=== PATIENT | female | born 1980 | race Caucasian/White ===

== ENCOUNTER 2021-05-14 10:59 | Emergency (ER) | payer OTHER, SELFPAY ==
--- NOTE | ~2021-05-14 | CT_ITS ---
EXAMINATION: CT ABDOMEN AND PELVIS WITHOUT CONTRAST CLINICAL INFORMATION: Right lower quadrant tenderness. Rule out appendicitis COMPARISON: Renal ultrasound 08/05/2014. TECHNIQUE: Multidetector volumetric imaging was performed from the superior aspect of the liver through the pubic symphysis. Sagittal and coronal reformatted images were obtained on the technologist's workstation. This CT examination was performed using dose optimization techniques as appropriate, variously including the following: *Automated exposure control *Adjustment of mA and/or kV according to patient size (this includes techniques or standardized protocols for targeted exams where dose is matched to indication/reason for exam; i.e. extremities or head) *Use of iterative reconstruction technique DLP: 454 mGy-cm FINDINGS: LUNG BASES: The visualized lung bases are unremarkable. LIVER, GALLBLADDER, AND BILIARY TREE: The liver is normal in size, shape, and attenuation. No focal hepatic lesion or biliary ductal dilatation is present. The gallbladder is unremarkable with no evidence of radiopaque gallstones, gallbladder wall thickening, or obvious pericholecystic inflammatory changes. PANCREAS: Unremarkable. SPLEEN: Unremarkable. ADRENAL GLANDS: Unremarkable. KIDNEYS AND URETERS: Right kidney: Normal size. A tiny nonobstructive calyceal calculus is demonstrated in the lower pole measuring 0.1 cm. No hydronephrosis or hydroureter. No visualized urolithiasis. Left kidney: Normal size. Tiny nonobstructive 0.1 cm upper pole calcification and 0.3 cm lower pole calcification. No hydronephrosis or hydroureter. No visualized urolithiasis. BLADDER: The bladder is decompressed limiting evaluation. GASTROINTESTINAL TRACT: The stomach and small and large bowel are nondistended. No evidence of obstruction. Small stool burden in the colon. No diverticulosis/diverticulitis is seen. The appendix is normal. ABDOMINAL WALL: No significant hernia is appreciated. LYMPH NODES: Normal. VASCULAR: Unremarkable. PELVIC VISCERA: The uterus is anteverted. A small right ovarian cyst is seen. No adnexal mass appreciated. No free fluid. OSSEOUS STRUCTURES: Unremarkable. CT/CT abdomen pelvis wo con IMPRESSION: Tiny nonobstructive renal calculi. Small stool burden in the colon. No evidence of bowel obstruction. Normal appendix. No cause for pain identified.
[2021-05-14 11:13] VITALS: BP 146/57; PULSE 56; RESP 17; TEMP 35.6; O2SAT 100; BMI 30.2
[2021-05-14 11:43] LABS: Glucose Urine UA NEG (NEG); Leukocyte Esterase Urine NEG (NEG); Nitrite Urine NEG (NEG); Specific Gravity - Urine 1.015 (1.005-1.025); Urine Blood NEG (NEG); Urine Ketones NEG (NEG); Urine Protein NEG (NEG-TRACE)
[2021-05-14 11:45] LABS: Appearance Urine CLEAR; Color Urine YELLOW
[2021-05-14 11:46] LABS: UPreg QC Valid YES; Urine Pregnancy NEGATIVE (NEGATIVE)
[2021-05-14 11:56] LABS: Bacteria Urine 1+ /LPF; RBC Urine 0 /HPF (0); Squamous Epithelial Cell Urine 2+ /LPF; WBC Urine 0 /HPF (0-4)
[2021-05-14] MEDS: 0.9 % Sodium Chloride 1,000 ML 999 ML IVCONT (12:26)
[2021-05-14 12:32] LABS: MANUAL DIFF FLAG NO
[2021-05-14 12:33] LABS: Basophils Percent Auto 0.5 % (0-2); Eosinophils Absolute Auto 0.1 X10*3/uL (0.0-0.4); Eosinophils Percent Auto 1.7 % (0-4); Hematocrit 36.5 % (37-47); Hemoglobin 11.6 g/dl (12.0-16.0); Imm Gran Abs Auto 0.01 X10*3/uL (0.00-0.03); Imm Gran Pct Auto 0.2 % (0.0-0.4); Lymphocytes Percent Auto 31.3 % (20-40); Mean Corpuscular HGB Conc 31.8 g/dl (31.0-35.0); Mean Corpuscular Hemoglobin 26.3 pg (27.0-33.0); Mean Corpuscular Volume 82.8 fL (80-98); Mean Platelet Volume 13.4 fL (9.4-12.3); Monocytes Absolute Auto 0.4 X10*3/uL (0.1-1.2); Monocytes Percent Auto 6.6 % (2-11); Neutrophils Absolute Auto 3.8 X10*3/uL (2.0-8.3); Neutrophils Percent Auto 59.7 % (45-73); Platelet Count 182 X10*3/uL (160-400); Red Blood Count 4.41 X10*6/uL (4.20-5.50); Red Cell Distribution Width 15.9 % (11.0-16.0); White Blood Count 6.4 X10*3/uL (4.8-10.8)
[2021-05-14 12:59] LABS: Alanine Aminotransferase 11 U/L (0-31); Albumin Level 4.5 g/dL (3.5-5.0); Alkaline Phosphatase 51 U/L (39-117); Anion Gap 12 (12-20); Aspartate Amino Transferase 14 U/L (5-31); Bilirubin Direct 0.2 mg/dL (0.0-0.5); Bilirubin Total 0.5 mg/dL (0.0-1.0); Blood Urea Nitrogen 10 mg/dL (9-16); Calcium 9.6 mg/dL (8.4-10.2); Carbon Dioxide 26 mmol/L (22-29); Chloride 106 mmol/L (96-108); Creatinine Clr Calc Pharmacy 80.4; Estimated Glomerular Filt Rate > 60; Glucose Random 90 mg/dL (60-115); Lipase 34 U/L (8-78); Potassium 3.9 mmol/L (3.3-5.1); Sodium 140 mmol/L (135-145); Total Protein 7.2 g/dL (6.5-8.0)
[2021-05-14 13:20] VITALS: BP 126/75; PULSE 55; RESP 16; O2SAT 98
[2021-05-14] MEDS: Ketorolac Tromethamine 15 MG/ML VIAL 30 MG IVPUSH (14:00)
--- NOTE | 2021-05-14 14:31 | ED_ITS ---
HPI - Abdominal Pain General Chief Complaint: Abdominal Pain Stated Complaint: ABD PAIN Time Seen by Provider: 05/14/21 12:10 History of Present Illness HPI narrative: Patient complains of intermittent crampy abdominal pain for several days worst around the umbilical area and lower to mid abdomen, she has not lost her appetite although eating food does make it mildly worse, she has no nausea vomiting or diarrhea she has no dysuria she has no fever no chills no rashes no other illness Related Data Previous Rx's Medication Instructions Recorded famotidine [Pepcid] 20 mg PO BID #14 tab 05/14/21 Allergies Allergy/AdvReac Type Severity Reaction Status Date / Time Sulfa (Sulfonamide Allergy Unknown hives and Verified 12/12/16 00:00 Antibiotics) swelling Review of Systems Review of Systems Positive for abdominal pain Negatives are no fever no chills no dizziness or weakness no fainting no feeling faint no headache no neck pain no back pain no chest pain no no cough no nausea no vomiting no diarrhea no dysuria no frequency no incontinence no blood in the urine no blood in the stool no joint pains no skin rashes Yes all other systems are reviewed and are negative Physical Exam Vital Signs: Vital Signs: Last Vital Signs Temp 96.0 F L 05/14/21 11:13 Pulse 55 05/14/21 13:20 Resp 16 05/14/21 13:20 BP 126/75 05/14/21 13:20 Pulse Ox 98 05/14/21 13:20 Body Mass Index 30.2 General appearance is no acute distress The eyes are anicteric with no pallor The pharynx is clear with no redness swelling or exudate and mucous membranes are moist Neck is supple The chest is clear to auscultation bilateral Heart no murmur The abdomen had mild periumbilical and right low abdomen tenderness including at McBurney's point with no rebound or guarding, no other tenderness The back there is no CVA tenderness, full range of motion Extremities full range of motion x4 The pelvic there was a thin whitish discharge, no cervical motion tenderness no adnexal enlargement or tenderness no mass palpated Skin no rashes Neuro no gross deficit identified Course Course Course Narrative: Patient was evaluated with CT scan and labs for possible appendicitis CT scan did not reveal any explanation for the pain and the appendix was seen is normal , no significant ovarian pathology was identified Repeat exam again shows moved very mild tenderness periumbilical and right lower abdomen without rebound or guarding, patient's pain was improved with Toradol and she is well-appearing and is discharged with a diagnosis of abdominal pain unknown etiology MDM - Abdominal Pain Lab Data Attestation: I reviewed the patient's lab results. Result diagrams: 05/14/21 12:23 05/14/21 12:23 Labs: Lab Results 05/14/21 05/14/21 05/14/21 Range/Units 11:29 11:29 12:23 WBC 6.4 (4.8-10.8) X10*3/uL RBC 4.41 (4.20-5.50) X10*6/uL Hgb 11.6 L (12.0-16.0) g/dl Hct 36.5 L (37-47) % MCV 82.8 (80-98) fL MCH 26.3 L (27.0-33.0) pg MCHC 31.8 (31.0-35.0) g/dl RDW 15.9 (11.0-16.0) % Plt Count 182 (160-400) X10*3/uL MPV 13.4 H (9.4-12.3) fL Immature Gran % (Auto) 0.2 (0.0-0.4) % Neut % (Auto) 59.7 (45-73) % Lymph % (Auto) 31.3 (20-40) % [place] % (Auto) 6.6 (2-11) % Eos % (Auto) 1.7 (0-4) % Baso % (Auto) 0.5 (0-2) % Lymph # (Auto) 2.0 (1.2-4.9) X10*3/uL [place] # (Auto) 0.4 (0.1-1.2) X10*3/uL Eos # (Auto) 0.1 (0.0-0.4) X10*3/uL Baso # (Auto) 0.0 (0.0-0.2) X10*3/uL Abs Immat Gran (auto) 0.01 (0.00-0.03) X10*3/uL Absolute Neuts (auto) 3.8 (2.0-8.3) X10*3/uL Absolute Nucleated RBC 0.000 (0.0-0.012) X10*3/uL Nucleated RBC % (auto) 0.0 (0.0-0.2) /100WBC Sodium (135-145) mmol/L Potassium (3.3-5.1) mmol/L Chloride (96-108) mmol/L Carbon Dioxide (22-29) mmol/L Anion Gap (12-20) BUN (9-16) mg/dL Creatinine (0.5-1.4) mg/dL Estim Creat Clear Calc Estimated GFR Random Glucose (60-115) mg/dL Calcium (8.4-10.2) mg/dL Total Bilirubin (0.0-1.0) mg/dL Direct Bilirubin (0.0-0.5) mg/dL AST (5-31) U/L ALT (0-31) U/L Alkaline Phosphatase (39-117) U/L Total Protein (6.5-8.0) g/dL Albumin (3.5-5.0) g/dL Lipase (8-78) U/L Urine Color YELLOW Urine Appearance CLEAR Urine pH 7.0 (5.0-8.0) Ur Specific [place] 1.015 (1.005-1.025) Urine Protein NEG (NEG-TRACE) MG/DL Urine Glucose (UA) NEG (NEG) MG/DL Urine Ketones NEG (NEG) MG/DL Urine Blood NEG (NEG) Urine Nitrite NEG (NEG) Ur Leukocyte Esterase NEG (NEG) Urine RBC 0 (0) /HPF Urine WBC 0 (0-4) /HPF Ur Squamous Epith Cells 2+ /LPF Urine Bacteria 1+ /LPF Urine Test NEGATIVE (NEGATIVE) 05/14/21 Range/Units 12:23 WBC (4.8-10.8) X10*3/uL RBC (4.20-5.50) X10*6/uL Hgb (12.0-16.0) g/dl Hct (37-47) % MCV (80-98) fL MCH (27.0-33.0) pg MCHC (31.0-35.0) g/dl RDW (11.0-16.0) % Plt Count (160-400) X10*3/uL MPV (9.4-12.3) fL Immature Gran % (Auto) (0.0-0.4) % Neut % (Auto) (45-73) % Lymph % (Auto) (20-40) % [place] % (Auto) (2-11) % Eos % (Auto) (0-4) % Baso % (Auto) (0-2) % Lymph # (Auto) (1.2-4.9) X10*3/uL [place] # (Auto) (0.1-1.2) X10*3/uL Eos # (Auto) (0.0-0.4) X10*3/uL Baso # (Auto) (0.0-0.2) X10*3/uL Abs Immat Gran (auto) (0.00-0.03) X10*3/uL Absolute Neuts (auto) (2.0-8.3) X10*3/uL Absolute Nucleated RBC (0.0-0.012) X10*3/uL Nucleated RBC % (auto) (0.0-0.2) /100WBC Sodium 140 (135-145) mmol/L Potassium 3.9 (3.3-5.1) mmol/L Chloride 106 (96-108) mmol/L Carbon Dioxide 26 (22-29) mmol/L Anion Gap 12 (12-20) BUN 10 (9-16) mg/dL Creatinine 0.78 (0.5-1.4) mg/dL Estim Creat Clear Calc 80.4 Estimated GFR > 60 Random Glucose 90 (60-115) mg/dL Calcium 9.6 (8.4-10.2) mg/dL Total Bilirubin 0.5 (0.0-1.0) mg/dL Direct Bilirubin 0.2 (0.0-0.5) mg/dL AST 14 (5-31) U/L ALT 11 (0-31) U/L Alkaline Phosphatase 51 (39-117) U/L Total Protein 7.2 (6.5-8.0) g/dL Albumin 4.5 (3.5-5.0) g/dL Lipase 34 (8-78) U/L Urine Color Urine Appearance Urine pH (5.0-8.0) Ur Specific [place] (1.005-1.025) Urine Protein (NEG-TRACE) MG/DL Urine Glucose (UA) (NEG) MG/DL Urine Ketones (NEG) MG/DL Urine Blood (NEG) Urine Nitrite (NEG) Ur Leukocyte Esterase (NEG) Urine RBC (0) /HPF Urine WBC (0-4) /HPF Ur Squamous Epith Cells /LPF Urine Bacteria /LPF Urine Test (NEGATIVE) Discharge Plan Discharge Clinical Impression: Abdominal pain of unknown etiology Patient Disposition: Home, Self-Care Additional Instructions: We did not find any evidence of appendicitis or any large ovarian cyst on CT scan Our labs did not show any urinary tract infection or or any evidence of liver disease There were no significant findings, no alarming findings on our workup Follow with both primary doctor and net web application developer for further evaluation We are going to try an antacid and otherwise [id number] Tylenol or Motrin for pain relief if needed Return to the ER any time for worsening pain, vomiting, dehydration, fever, any worse condition or any concerns We will call you if any results from the culture of the vaginal discharge are positive Prescriptions: New famotidine [Pepcid] 20 mg tablet 20 mg PO BID Qty: 14 RF: 0 Stand Alone Forms: Work/School Release PMFSH Past Medical History Source: nursing notes reviewed Medical History (Updated 05/14/21 @ 14:40 by MOON Vaca) delivery delivered Hypertension Social History Social History Advance Directives: No Advance Directives Information Provided: Yes Patient : No
[2021-05-14 16:48] LABS: CT PCR NOT DETECTED (Not Detect.); NG PCR NOT DETECTED (Not Detect.)
[2021-05-15 09:10] LABS: BV Int Neg Control Negative (Negative); BV Int Pos Control Positive (Positive)
== END 2021-05-14 14:52 | disposition home or self-care (01) ==
PROVIDERS: Physician Assistant Medical; Emergency Provider Emergency Medicine; PCP Internal Medicine
DX: R10.9 Unspecified abdominal pain (principal); I10 Essential (primary) hypertension
CPT/HCPCS: 36415; 74176; 80048; 80076; 81001; 81025; 83690; 85025; 87480; 87491; 87510; 87591; 87660; 96361; 96374; 99284; J1885

== ENCOUNTER 2025-05-19 16:43 | Emergency (ER) | payer OTHER, SELFPAY ==
--- NOTE | 2025-05-19 17:39 | ED_ITS ---
HPI - General Adult General Chief complaint: Dizziness Stated complaint: rt arm tingling/pain Time Seen by Provider: 05/19/25 19:05 Source: patient Mode of arrival: ambulatory Limitations: no limitations History of Present Illness ED Provider: HPI narrative: Patient is 45 years old with a history of anxiety depression hypotension comes here for been having nausea with watery diarrhea since 11:00 today had multiple bowel movements along with that patient noticed tingling sensation of the right forearm and face no chest pain no vomiting patient took Zofran around 13:00 and felt better no head patient's feel off balance with vertiginous feeling since then also no significant abdominal pain Related Data Previous Rx's ?Medication ?Instructions ?Recorded famotidine 20 mg tablet (Pepcid) 20 mg PO BID #14 tabs 05/14/21 Allergies Allergy/AdvReac Type Severity Reaction Status Date / Time Sulfa (Sulfonamide Allergy Unknown hives and Verified 05/19/25 17:45 Antibiotics) swelling Iodinated Contrast Media Allergy Anaphylaxis Verified 05/19/25 17:45 (Contrast Dye) prochlorperazine (From Allergy Fatigued Verified 05/19/25 17:45 Compazine) Review of Systems 2 Review of Systems: Yes all other systems are reviewed and are negative [facility] Past Medical History Medical History delivery delivered Hypertension Social History Social History Advance Directives: No Advance Directives Information Provided: Yes Physical Exam ED Vital Signs: Vital Signs - 24 hr 05/19/25 17:40 05/19/25 18:06 Temperature 98.4 F Pulse Rate 80 59 Respiratory Rate 16 16 Blood Pressure 139/65 123/86 Pulse Oximetry 99 99 Oxygen Delivery Method Room Air Room Air BMI result Body Mass Index 31.2 Appearance: Alert. Oriented X3. No acute distress. Eyes: PERRLA, No Nystagmus ENT: Pharynx normal. Oral Mucosa moist Neck: Normal inspection. Neck supple. CVS: Normal heart rate and rhythm. Pulses normal. Respiratory: No respiratory distress. Equal air entry bilateral, no wheezing/rales/rhonchi Abdomen: Soft and nontender. Bowel sounds are present, no mass palpable, no CVA tenderness Skin: Skin warm and dry. Normal skin color. Normal skin turgor. Extremities: No lower extremity edema. No calf tenderness Neuro: Oriented X 3. No motor deficit. No sensory deficit.No cerebellar signs , cranial nerves II-XII intact Course Course Course Narrative: RME, this is a rapid medical exam performed by Dylan Jara please refer to primary provider for complete H&P- 45 year old female presents for evaluation of right arm tingling, dizziness, and nausea. Plan for labs, UA, EKG Medical Decision Making Medical Decision Making [facility] Narrative: Patient nonspecific symptoms , clinically with anxiety nonfocal exam patient does have vertiginous feeling but ambulating in steady gait want any medication or treatment for vertigo as it is feeling better no tinnitus no cerebellar sign Differential Diagnosis Differential Diagnoses: The differential diagnosis associated with the presentation includes Vertigo/electrolyte imbalance/anxiety/CVA/TIA Lab Data [facility] Lab Attestation statement: I reviewed the patient's lab results. 05/19/25 17:59 05/19/25 17:59 Labs: Lab Results 05/19/25 05/19/25 Range/Units 17:59 18:50 WBC 7.0 (4.8-10.8) X10*3/uL RBC 4.26 (4.20-5.50) X10*6/uL Hgb 12.7 (12.0-16.0) g/dl Hct 36.8 L (37.0-47.0) % MCV 86.4 (80.0-98.0) fL MCH 29.8 (27.0-33.0) pg MCHC 34.5 (31.0-35.0) g/dl RDW 16.6 H (11.0-16.0) % Plt Count 149 L (160-400) X10*3/uL MPV 13.6 H (9.4-12.3) fL Immature Gran % (Auto) 0.4 (0.0-0.4) % Neut % (Auto) 69.9 (45-73) % Lymph % (Auto) 21.2 (20-40) % [place] % (Auto) 6.9 (2-11) % Eos % (Auto) 0.9 (0-4) % Baso % (Auto) 0.7 (0-2) % Lymph # (Auto) 1.5 (1.2-4.9) X10*3/uL [place] # (Auto) 0.5 (0.1-1.2) X10*3/uL Eos # (Auto) 0.1 (0.0-0.4) X10*3/uL Baso # (Auto) 0.1 (0.0-0.2) X10*3/uL Abs Immat Gran (auto) 0.03 (0.00-0.03) X10*3/uL Absolute Neuts (auto) 4.9 (2.0-8.3) x10*3/uL Absolute Nucleated RBC 0.000 (0.0-0.012) X10*3/uL Nucleated RBC % (auto) 0.0 (0.0-0.2) /100WBC Sodium 141 (135-145) mmol/L Potassium 3.6 (3.3-5.1) mmol/L Chloride 105 (96-108) mmol/L Carbon Dioxide 26 (22-29) mmol/L Anion Gap 14 (12-20) BUN 15 (9-16) mg/dL Creatinine 0.87 (0.5-1.4) mg/dL Estim Creat Clear Calc 70.2 Estimated GFR > 60 Random Glucose 102 (60-115) mg/dL Calcium 9.5 (8.4-10.2) mg/dL Magnesium 2.0 (1.6-2.6) mg/dL Total Bilirubin 0.3 (0.0-1.0) mg/dL AST 28 (5-31) U/L ALT 34 H (0-31) U/L Alkaline Phosphatase 46 (39-117) U/L Troponin I High Sens < 2.7 (<3.5-17.0) ng/L Total Protein 7.1 (6.5-8.0) g/dL Albumin 4.8 (3.5-5.0) g/dL Lipase 37 (8-78) U/L Beta HCG, Quant < 2 mIU/mL Urine Color Yellow Urine Appearance Clear Urine pH 7.0 (5.0-9.0) Ur Specific [place] 1.010 (1.005-1.025) Urine Protein Negative (Neg-Trace) mg/dL Urine Glucose (UA) Negative (Negative) mg/dL Urine Ketones Negative (Negative) mg/dL Urine Blood Negative (Negative) Urine Nitrite Negative (Negative) Ur Leukocyte Esterase Negative (Negative) Urine RBC 0-2 (0-2) /HPF Urine WBC 0-5 (0-5) /HPF Ur Squamous Epith Cells 0-2 (0-2) /HPF Urine Bacteria None Seen (None Seen) Hyaline Casts 0-2 (0-2) /LPF Influenza Type A (PCR) NEGATIVE (Negative) Influenza Type B (PCR) NEGATIVE (Negative) RSV RNA Qual (PCR) NEGATIVE (Negative) SARS-CoV-2 RNA (RT-PCR) NEGATIVE (Negative) Discharge Plan Discharge Clinical Impression: Paresthesia, Benign paroxysmal positional vertigo Patient Disposition: Home, Self-Care Instructions: Benign Paroxysmal Positional Vertigo (DC), Paresthesia (ED) Additional Instructions: Cause of your dizziness is not clear likely have benign positional vertigo Care and cautions as advised Follow up with your PCP Prescriptions: No Action famotidine [Pepcid] 20 mg tablet 20 mg PO BID Qty: 14 0RF Print Language: Serbian
[2025-05-19 17:40] VITALS: BP 139/65; PULSE 80; RESP 16; O2SAT 99; BMI 31.2
--- NOTE | 2025-05-19 17:40 | ECG_ITS ---
Test Reason : DIZZINESS Blood Pressure : */* mmHG Vent. Rate : 68 BPM Atrial Rate : 68 BPM P-R Int : 158 ms QRS Dur : 100 ms QT Int : 434 ms P-R-T Axes : 26 7 23 degrees QTcB Int : 461 ms Normal sinus rhythm Normal ECG When compared with ECG of 12-Mar-2016 16:23, No significant change was found Referred By: Long Jara Electronically Signed By: JEANNETTE MA MD
[2025-05-19 18:06] VITALS: BP 123/86; PULSE 59; RESP 16; TEMP 36.9; O2SAT 99
[2025-05-19 18:11] LABS: MANUAL DIFF FLAG NO
[2025-05-19 18:16] LABS: NRBC Abs Auto 0.000 X10*3/uL (0.0-0.012); NRBC Pct Auto 0.0 /100WBC (0.0-0.2); SCAN SMEAR FLAG 1
[2025-05-19 18:18] LABS: Hematocrit 36.8 % (37.0-47.0); Hemoglobin 12.7 g/dl (12.0-16.0); Imm Gran Abs Auto 0.03 X10*3/uL (0.00-0.03); Imm Gran Pct Auto 0.4 % (0.0-0.4); Lymphocytes Absolute Auto 1.5 X10*3/uL (1.2-4.9); Mean Corpuscular HGB Conc 34.5 g/dl (31.0-35.0); Mean Corpuscular Hemoglobin 29.8 pg (27.0-33.0); Mean Corpuscular Volume 86.4 fL (80.0-98.0); Platelet Count 149 X10*3/uL (160-400); Red Blood Count 4.26 X10*6/uL (4.20-5.50); White Blood Count 7.0 X10*3/uL (4.8-10.8)
[2025-05-19 18:24] LABS: PLT ABN DIST 1
[2025-05-19 18:28] LABS: Alanine Aminotransferase 34 U/L (0-31); Albumin Level 4.8 g/dL (3.5-5.0); Alkaline Phosphatase 46 U/L (39-117); Anion Gap 14 (12-20); Aspartate Amino Transferase 28 U/L (5-31); Blood Urea Nitrogen 15 mg/dL (9-16); Calcium 9.5 mg/dL (8.4-10.2); Carbon Dioxide 26 mmol/L (22-29); Chloride 105 mmol/L (96-108); Creatinine Clr Calc Pharmacy 70.2; Estimated Glomerular Filt Rate > 60; Lipase 37 U/L (8-78); Magnesium 2.0 mg/dL (1.6-2.6); Potassium 3.6 mmol/L (3.3-5.1); Sodium 141 mmol/L (135-145); Total Protein 7.1 g/dL (6.5-8.0)
[2025-05-19 18:54] LABS: Resp Syncy Virus RNA Qual PCR NEGATIVE (Negative); SARS COV2 PCR INHOUSE NEGATIVE (Negative)
[2025-05-19 18:58] LABS: Appearance Urine Clear; Glucose Urine UA Negative (Negative); PH 7.0 (5.0-9.0); Specific Gravity - Urine 1.010 (1.005-1.025)
[2025-05-19 19:23] LABS: Troponin-I High Sensitivity < 2.7 ng/L (<3.5-17.0)
--- OUTSIDE RECORDS SUMMARY | 2025-05-19 19:43 | XMS_ITS | Continuity of Care Document ---
Author Organization [facility] Address [address] [place] [address] Insurance Providers Payer Plan Claims Address Claims Phone Policy Number Group Number Relation Employer Guarantor Name Guarantor Guarantor Address Guarantor Phone GIORGIO Rosado [facility] [address] [id number] Self Colleen Vázquez [address] [place] [phone] [facility] 1 [facility], [address] [id number] Self Colleen Vázquze [address] [place] [address] [id number] [employer] [facility] ONE [facility], [address] [place] [address] tel:[phone] [id number] [phone] [id number] Self Colleen Vázquez [address] [place] [address] Problems Condition ICD9 code ICD10 code SNOMED code Start Date End Date S tatus Encounter for screening for other metabolic disorders Z13.228 Results No Results Allergies, adverse reactions, alerts No known allergies and adverse reactions Medications No administered medications reported Vital Signs No vital signs reported Social History No smoking Hx information available
--- OUTSIDE RECORDS SUMMARY | 2025-05-19 19:43 | XMS_ITS | Continuity of Care Document ---
Author Organization [facility] Address [address] [facility] [address] [place] [address] Insurance Providers Payer Plan Claims Address Claims Phone Policy Number Group Number Relation Employer Guarantor Name Guarantor Guarantor Address Guarantor Phone GIORGIO Rosado [facility] [address] [id number] Self Colleen Vázquez [address] [place] [id number] [facility] [place] 1 [facility], [address] [id number] Self Colleen Vázquez [address] [place] [address] [id number] [employer] [facility] ONE [facility], [address] [place] [address] tel:[phone] [phone] [id number] Self Colleen Vázquez [address] [place] [address] Problems Condition ICD9 code ICD10 code SNOMED code Start Date End Date S tatus Encounter for screening for other metabolic disorders Z13.228 Results No Results Allergies, adverse reactions, alerts No known allergies and adverse reactions Medications No administered medications reported Vital Signs No vital signs reported Social History No smoking Hx information available
--- OUTSIDE RECORDS SUMMARY | 2025-05-19 19:43 | XMS_ITS | Encounter Summary ---
Author Organization [facility] Address [address] [place] [address] Phone Care Team Providers Care Wardrobe Consultant Name Role Phone Kaushik Avendaño MD Primary Care Provider Reason for Visit * Reason Comments Med Refill Encounter Details Date Type Department Care Team ([facility] Contact Info) Description 04/21/2020 Refill [facility] [place] [address] [address] [place] [address] Dexter Choi MD [address] [facility] [place] [address] Social History Tobacco Use Types Packs/Day Years Used Date Smoking Tobacco: Never Alcohol Use Standard Drinks/Week Comments No 0 (1 standard drink = 0.6 oz pur e alcohol) Comments Unknown Sex and Gender Information Value Date Recorded Sex Assigned at Not on file Legal Sex Female 4:33 PM EST Gender Identity Not on file Sexual Orientation Not on file documented as of this encounter Plan of Treatment Upcoming Encounters Date Type Department Care Team ([facility] Contact Info) Description 01/25/2026 4:15 PM EDT Office Visit [facility] [place], [address] [facility] [facility] [place] [address] Dexter Choi MD [address] [facility] [place] [address] documented as of this encounter Visit Diagnoses Not on filedocumented in this encounter Care Teams Wardrobe Consultant Relationship Specialty Start Date End Date Kaushik Avendaño MD [address] [place] [id number] PCP - [facility] 01/19/25 documented as of this encounter
--- OUTSIDE RECORDS SUMMARY | 2025-05-19 19:43 | XMS_ITS ---
Author Name [facility] Organization Unknown Care Team Organization Name Specialty Phone Email Start Date End Da te [facility] Kaushik Avendaño Primary Care 08/28/202205/21
--- OUTSIDE RECORDS SUMMARY | 2025-05-19 19:43 | XMS_ITS | Clinical Summary ---
Author Organization [employer] [facility] Address [address] [place] [address] Care Team Providers Care Button Sawyer Name Role Phone Kaushik Avendaño MD Primary Care Provider [phone] Allergies Active Allergy Reactions Criticality Noted Date Comments Prochlorperazine 10/18/2023 Haloperidol 10/18/2023 Iodinated Contrast Media 10/18/2023 Sulfa Antibiotics 10/18/2023 Medications Medication Sig Dispensed Refills Start Date End Date Status LORazepam (ATIVAN) 1 MG tablet Take 1 tablet (1 mg total) by mouth every 6 (six) hours as needed. 0 Active hydrOXYzine (ATARAX) 10 MG tablet Take 1 tablet (10 mg total) by mouth 3 (three) times a day as needed for itching. 0 Active escitalopram (LEXAPRO) 5 MG tablet Take 1 tablet (5 mg total) by mouth daily. 0 Active linaclotide (LINZESS) 145 MCG CAPS Take 1 capsule (145 mcg total) by mouth every morning before breakfast. 0 Active irbesartan (Avapro) 150 MG tablet Take 1 tablet (150 mg total) by mouth every night at bedtime. 0 Active folic acid (FOLVITE) tablet 1 mg Take 1 tablet (1 mg total) by mouth daily. 0 Active famotidine (PEPCID) 20 MG tablet Take 1 tablet (20 mg total) by mouth 2 (two) times a day. 0 Active Albuterol Sulfate 108 (90 Base) MCG/ACT AEPB Inhale into the lungs. 0 Active cabergoline (DOSTINEX) tablet 0.5 mg Take 0.5 tablets (0.25 mg total) by mouth 2 (two) times a week. 0 Active omeprazole (PriLOSEC) 20 MG capsule Take 1 capsule (20 mg total) by mouth daily. 0 Active buPROPion (Wellbutrin SR) 150 MG 12 hr tablet Take by mouth. 0 Active Active Problems Problem Noted Date Diagnosed Date ELIZABETH (iron deficiency anemia) 10/18/2023 Family History Medical History Relation Name Comments Cancer Maternal Grandmother BREAST Cancer Paternal Grandmother BREAST Relation Name Status Comments Maternal Grandmother Paternal Grandmother Social History Tobacco Use Types Packs/Day Years Used Date Smoking Tobacco: Never Smokeless Tobacco: Never Tobacco Cessation:Counseling Given: Not Answered Alcohol Use Standard Drinks/Week Comments Yes 1 (1 standard drink = 0.6 oz pur e alcohol) Sex and Gender Information Value Date Recorded Sex Assigned at Not on file Gender Identity Not on file Sexual Orientation Not on file Job Start Date Occupation Industry Not on file Not on file Not on file Last Filed Vital Signs Vital Sign Reading Time Taken Comments Blood Pressure 122/81 11/18/2023 1:11 PM EST Pulse 65 11/18/2023 1:11 PM EST Temperature 36.4 C (97.6 F) 11/18/2023 1:11 PM EST Respiratory Rate 18 11/18/2023 1:11 PM EST Oxygen Saturation 100% 11/18/2023 1:11 PM EST Inhaled Oxygen Concentration - - Weight 67.4 kg (148 lb 9.6 oz) 10/18/2023 11:51 AM EST Height 152.4 cm (5') 10/18/2023 11:51 AM EST Body Mass Index 29.02 10/18/2023 11:51 AM EST Plan of Treatment Health Maintenance Due Date Last Done Comments Hepatitis B Vaccines (1 of 3 - 3-dose series) 1981 Hepatitis C Screening 1981 Depression Screening 1993 BMI Counseling 1999 Preventative Health Evaluation 1999 Cervical Cancer Screening (Pap Smear) 2002 COVID-19 Vaccine (2023-2 5 season) 2024 02/20/2021, 01/29/2021 Influenza Vaccine (#1) 2025 0, 08/30/2015 DTap / Tdap / Td (2 - Td or Tdap) 05/03/2026 05/03/2016 Pneumococcal Vaccine Aged Out No long er eligible based on patient's age to complete this topic RSV Ped < 20 months Aged Out No longe r eligible based on patient's age to complete this topic Care Teams Button Sawyer Relationship Specialty Start Date End Date Kaushik Avendaño MD [address] [place] [id number] PCP - General Hospitalist Medicine 09/25/23
[2025-05-19 20:18] VITALS: BP 123/86; PULSE 59; RESP 16; TEMP 36.9; O2SAT 99
== END 2025-05-19 20:21 | disposition home or self-care (01) ==
PROVIDERS: Physician Assistant; Emergency Provider Internal Medicine; PCP Internal Medicine
DX: H81.10 Benign paroxysmal vertigo, unspecified ear (principal); R20.2 Paresthesia of skin; R11.0 Nausea; R19.7 Diarrhea, unspecified
CPT/HCPCS: 36415; 80053; 81001; 83690; 83735; 84484; 84702; 85025; 87637; 93005; 99283; 99284

== ENCOUNTER → 2025-05-19 17:40 | Outpatient (BNV) | payer OTHER, SELFPAY | PROVIDERS: Emergency Provider Internal Medicine; PCP Internal Medicine; Visit Provider Internal Medicine Cardiovascular Disease | DX: R42 Dizziness and giddiness (principal) | CPT/HCPCS: 93010 ==